=== PATIENT | female | born 1970 | race Hispanic/Latino ===

== ENCOUNTER 2019-02-05 10:53 | Emergency (ER) | payer SELFPAY | END 2019-02-05 11:50 | disposition home or self-care (01) | LOC: EDH 10:53 | DX: N93.9 Abnormal uterine and vaginal bleeding, unspecified (principal); E78.5 Hyperlipidemia, unspecified; E11.9 Type 2 diabetes mellitus without complications; Z98.890 Other specified postprocedural states; Z88.1 Allergy status to other antibiotic agents | CPT/HCPCS: 99281 ==

== ENCOUNTER 2022-11-12 17:06 | Inpatient (IN) | payer OTHER ==
[~2022-11-12] VITALS: Ht 160 cm; Wt 65.8 kg
[2022-11-12 17:40] LABS: BASOPHILS % (AUTO) 0.3 % (0.0-5.0); HEMATOCRIT 30.1 % (36-48); LYMPHOCYTES % (AUTO) 4.9 % (21.0-51.0); MEAN CORPUSCULAR HEMOGLOBIN 32.1 pg (27.0-33.0); MEAN CORPUSCULAR HGB CONC 34.6 g/dL (32.0-36.0); MEAN CORPUSCULAR VOLUME 92.9 fL (79-99); MONOCYTES % (AUTO) 2.4 % (3.0-13.0); NEUTROPHILS % (AUTO) 91.7 % (40.0-77.0); PLATELET COUNT (AUTO) 99 K/uL (130-400); RED BLOOD CELL COUNT(AUTO) 3.24 MIL/uL (4.00-5.50); RED CELL DISTRIBUTION WIDTH 12.2 % (11.0-15.5); WHITE BLOOD COUNT (AUTO) 9.2 K/uL (4.8-10.8)
[2022-11-12 17:52] LABS: CREATININE 0.9 mg/dL (0.5-1.5); POTASSIUM 3.8 mmol/L (3.5-5.1)
[2022-11-12 17:57] LABS: TOTAL PROTEIN, SERUM 6.9 g/dL (6.0-8.3)
[2022-11-12] MEDS ORDERED: 0.9%NACL 1000ML 1,000 ML IV ONE ×2 (18:00)
[2022-11-12] MEDS ORDERED: ACETAMINOPHEN 500 MG TABLET PO ONE (18:00)
[2022-11-12 18:43] LABS: APPEARANCE,URINE CLOUDY (CLEAR); BILIRUBIN,URINE 2 mg/dL (NEGATIVE); COLOR,URINE DARK-YELLOW (YELLOW); GLUCOSE, URINE (UA) 70 mg/dL (NEGATIVE); KETONES,URINE NEGATIVE (NEGATIVE); LEUKOCYTE ESTERASE ,URINE 250 Leu/uL (NEGATIVE); NITRATE,URINE NEGATIVE (NEGATIVE); OCCULT BLOOD,URINE SMALL (NEGATIVE); PH,URINE 5.5 (5.0-8.0); PROTEIN,URINE 30 mg/dL (NEGATIVE)
[2022-11-12 18:51] LABS: BACTERIA,URINE RARE /HPF (None Seen); MUCUS,URINE RARE LPF (None Seen); SQUAMOUS EPITHELIAL CELL,UR RARE /HPF (0-2); YEAST,URINE BUDDING RARE /HPF (None Seen)
[2022-11-12] MEDS ORDERED: FAMOTIDINE 20MG VIAL IV ONE (19:00)
[2022-11-12] MEDS ORDERED: ONDANSETRON 4MG INJ IVP ONE (19:00)
[2022-11-12] MEDS ORDERED: ONDANSETRON 4MG INJ IV PRN (19:30)
[2022-11-12] MEDS ORDERED: ACETAMINOPHEN WITH CODEINE 1 TAB TAB PO PRN (19:30)
[2022-11-12] MEDS ORDERED: CEFTRIAXONE 1G VIAL IV SCH (19:30)
[2022-11-12] MEDS ORDERED: MAG/ALUM/SIMETH 30 ML UDCUP PO PRN (19:30)
[2022-11-12] MEDS ORDERED: CEFTRIAXONE 1G VIAL IVP ONE (19:30)
[2022-11-12] MEDS ORDERED: ZOLPIDEM TARTRATE 5 MG TAB PO PRN (19:30)
[2022-11-12] MEDS ORDERED: LACTULOSE 20 GM/30 ML UDCUP PO PRN (19:30)
[2022-11-12] MEDS ORDERED: MORPHINE 2 MG SYG IV PRN (20:00)
[2022-11-12] MEDS: FAMOTIDINE 20MG VIAL IV SCH (20:06)
[2022-11-12] MEDS: 0.9%NACL 1000ML 1,000 ML IV SCH (20:06)
[2022-11-12] MEDS: INSULIN HUMULIN R 100 UNIT/ML 3ML SQ SCH (21:00)
[2022-11-12 23:43] VITALS: BP 90/40
[2022-11-13 00:21] VITALS: BP 100/50
[2022-11-13] MEDS ORDERED: FLUO20CA30 PO (00:24)
[2022-11-13] MEDS ORDERED: ATOR10 PO (00:24)
[2022-11-13] MEDS ORDERED: METF-446 PO (00:24)
[2022-11-13 02:09] VITALS: BP 100/60
[2022-11-13] MEDS: ACETAMINOPHEN 325 MG TAB PO PRN ×4 (02:11→20:42)
[2022-11-13 03:56] VITALS: BP 90/46
[2022-11-13] MEDS: 0.9%NACL 1000ML 1,000 ML IV SCH ×2 (05:17→18:39)
[2022-11-13] MEDS: INSULIN HUMULIN R 100 UNIT/ML 3ML SQ SCH ×4 (05:21→20:57)
[2022-11-13 06:00] LABS: HEMATOCRIT 25.7 % (36-48); MEAN CORPUSCULAR HEMOGLOBIN 31.7 pg (27.0-33.0); MEAN CORPUSCULAR HGB CONC 33.1 g/dL (32.0-36.0); MEAN CORPUSCULAR VOLUME 95.9 fL (79-99); RED BLOOD CELL COUNT(AUTO) 2.68 MIL/uL (4.00-5.50); RED CELL DISTRIBUTION WIDTH 12.7 % (11.0-15.5); WHITE BLOOD COUNT (AUTO) 8.4 K/uL (4.8-10.8)
[2022-11-13 06:04] LABS: CREATININE 0.7 mg/dL (0.5-1.5); MAGNESIUM 1.6 mg/dL (1.80-2.40); POTASSIUM 3.6 mmol/L (3.5-5.1)
[2022-11-13 08:00] VITALS: BP 107/53
[2022-11-13] MEDS: FAMOTIDINE 20MG VIAL IV SCH ×2 (08:44→20:22)
[2022-11-13] MEDS ORDERED: ENOXAPARIN SODIUM 40 MG/0.4 ML SYRINGE SQ SCH (09:00)
[2022-11-13 11:53] VITALS: BP 84/49
[2022-11-13] MEDS ORDERED: 0.9%NACL 50ML IV SCH (13:30)
[2022-11-13] MEDS ORDERED: LIDOCAINE HCL-MPF 1% 2ML VIAL IV PRN (13:30)
[2022-11-13] MEDS ORDERED: MAGNESIUM 2GM PREMIX 50ML 50 ML IV PRN (13:30)
[2022-11-13] MEDS ORDERED: POTASSIUM CHLORIDE 10% ELIXIR 20 MEQ/15 ML UDCUP PO PRN (13:30)
[2022-11-13] MEDS ORDERED: POTASSIUM CHLORIDE 20MEQ/100ML 100 ML IV PRN (13:30)
[2022-11-13] MEDS: ZOSYN 3.375GM +NS 50ML IVPB SCH ×2 (14:35→20:22)
[2022-11-13] MEDS: KCL 20 MEQ ERTAB PO PRN ×2 (15:34→19:18)
[2022-11-13 20:00] VITALS: BP 94/47
[2022-11-14] VITALS (7 sets, daily range): BP systolic 80–117; BP diastolic 45–60
[2022-11-14] MEDS: 0.9%NACL 1000ML 1,000 ML IV SCH ×3 (01:04→20:00)
[2022-11-14] MEDS: ZOSYN 3.375GM +NS 50ML IVPB SCH ×3 (04:38→20:00)
[2022-11-14 04:44] LABS: BASOPHILS % (AUTO) 0.3 % (0.0-5.0); LYMPHOCYTES % (AUTO) 5.4 % (21.0-51.0); MEAN CORPUSCULAR HEMOGLOBIN 32.4 pg (27.0-33.0); MEAN CORPUSCULAR VOLUME 92.7 fL (79-99); NEUTROPHILS % (AUTO) 90.5 % (40.0-77.0); PLATELET COUNT (AUTO) 100 K/uL (130-400); RED BLOOD CELL COUNT(AUTO) 2.59 MIL/uL (4.00-5.50); WHITE BLOOD COUNT (AUTO) 10.9 K/uL (4.8-10.8)
[2022-11-14 05:05] LABS: ALBUMIN 2.1 g/dL (3.5-5.0); CREATININE 0.7 mg/dL (0.5-1.5); MAGNESIUM 1.6 mg/dL (1.80-2.40); POTASSIUM 4.2 mmol/L (3.5-5.1); TOTAL PROTEIN, SERUM 5.4 g/dL (6.0-8.3)
[2022-11-14] MEDS: INSULIN HUMULIN R 100 UNIT/ML 3ML SQ SCH ×4 (05:25→20:00)
[2022-11-14] MEDS: ACETAMINOPHEN 325 MG TAB PO PRN ×3 (07:38→18:06)
[2022-11-14 09:27] LABS: HEPATITIS A IGM ANTIBODY Non-Reactive (Nonreactive); HEPATITIS B CORE IGM ANTIBODY Non-Reactive (Negative); HEPATITIS B SURFACE ANTIGEN Non-Reactive (Nonreactive); HEPATITIS C ANTIBODY Non-Reactive (Nonreactive)
[2022-11-14] MEDS: FAMOTIDINE 20MG VIAL IV SCH ×2 (09:52→20:00)
[2022-11-14 10:03] LABS: HEMATOCRIT 25.5 % (36-48); MEAN CORPUSCULAR HGB CONC 33.3 g/dL (32.0-36.0); MEAN CORPUSCULAR VOLUME 95.9 fL (79-99); RED BLOOD CELL COUNT(AUTO) 2.66 MIL/uL (4.00-5.50); RED CELL DISTRIBUTION WIDTH 13.2 % (11.0-15.5); WHITE BLOOD COUNT (AUTO) 11.5 K/uL (4.8-10.8)
[2022-11-14 10:20] LABS: % IRON SATURATION 8.7 % (22-44)
[2022-11-14] MEDS ORDERED: FLUCONAZOLE 200 MG/NS 100 ML 100 ML IV SCH (13:00)
[2022-11-14] MEDS: MAGNESIUM 2GM PREMIX 50ML 50 ML IV SCH (13:46)
[2022-11-14 14:27] LABS: APPEARANCE,URINE CLEAR (CLEAR); BILIRUBIN,URINE 0.5 mg/dL (NEGATIVE); COLOR,URINE YELLOW (YELLOW); GLUCOSE, URINE (UA) 30 mg/dL (NEGATIVE); KETONES,URINE 5 mg/dL (NEGATIVE); LEUKOCYTE ESTERASE ,URINE 25 Leu/uL (NEGATIVE); NITRATE,URINE NEGATIVE (NEGATIVE); OCCULT BLOOD,URINE NEGATIVE (NEGATIVE); PROTEIN,URINE NEGATIVE (NEGATIVE)
[2022-11-14 14:30] LABS: SQUAMOUS EPITHELIAL CELL,UR RARE /HPF (0-2); YEAST,URINE BUDDING RARE /HPF (None Seen)
[2022-11-15] VITALS (7 sets, daily range): BP systolic 93–112; BP diastolic 47–61
[2022-11-15] MEDS: ACETAMINOPHEN 325 MG TAB PO PRN ×3 (02:45→20:31)
[2022-11-15] MEDS: 0.9%NACL 1000ML 1,000 ML IV SCH ×2 (04:19→18:08)
[2022-11-15] MEDS: ZOSYN 3.375GM +NS 50ML IVPB SCH ×4 (04:19→20:30)
[2022-11-15 04:44] LABS: HEMATOCRIT 23.2 % (36-48); MEAN CORPUSCULAR HEMOGLOBIN 31.4 pg (27.0-33.0); MEAN CORPUSCULAR HGB CONC 32.8 g/dL (32.0-36.0); MEAN CORPUSCULAR VOLUME 95.9 fL (79-99); RED BLOOD CELL COUNT(AUTO) 2.42 MIL/uL (4.00-5.50); RED CELL DISTRIBUTION WIDTH 13.6 % (11.0-15.5); WHITE BLOOD COUNT (AUTO) 9.7 K/uL (4.8-10.8)
[2022-11-15 05:03] LABS: ALBUMIN 1.8 g/dL (3.5-5.0); CREATININE 0.7 mg/dL (0.5-1.5); MAGNESIUM 1.8 mg/dL (1.80-2.40); POTASSIUM 3.6 mmol/L (3.5-5.1); TOTAL PROTEIN, SERUM 4.8 g/dL (6.0-8.3)
[2022-11-15] MEDS: INSULIN HUMULIN R 100 UNIT/ML 3ML SQ SCH ×4 (05:58→19:42)
[2022-11-15] MEDS ORDERED: POTASSIUM CHLORIDE 20 MEQ/100 ML BAG IV SCH (07:00)
[2022-11-15] MEDS ORDERED: MAGNESIUM 2GM PREMIX 50ML 50 ML IV SCH (07:00)
[2022-11-15] MEDS: FAMOTIDINE 20MG VIAL IV SCH ×2 (08:16→20:30)
[2022-11-15] MEDS: MAGNESIUM 2GM PREMIX 50ML 50 ML IV SCH (08:17)
[2022-11-15] MEDS ORDERED: IRON SUCROSE COMPLEX 300 MG in 0.9% NACL 250ML 250 ML IV SCH (09:00)
[2022-11-15] MEDS ORDERED: COMPOUND IV MISC 1 EACH IVSOLN MISC PRN (10:00)
[2022-11-15] MEDS ORDERED: PEG 3350/NA SULF,BICARB,CL/KCL 4000 ML SOLN PO STA (18:02)
[2022-11-16] VITALS (21 sets, daily range): BP systolic 93–113; BP diastolic 40–69
[2022-11-16] MEDS: ZOSYN 3.375GM +NS 50ML IVPB SCH ×3 (04:12→20:29)
[2022-11-16] MEDS: 0.9%NACL 1000ML 1,000 ML IV SCH ×3 (04:12→20:30)
[2022-11-16 05:22] LABS: INR 1.09 (0.85-1.15); PROTHROMBIN TIME 11.8 SEC (9.6-11.6)
[2022-11-16 05:24] LABS: PARTIAL THROMBOPLASTIN TIME 32.3 SEC (26.3-35.5)
[2022-11-16] MEDS: INSULIN HUMULIN R 100 UNIT/ML 3ML SQ SCH ×4 (06:25→20:30)
[2022-11-16] MEDS ORDERED: PROPOFOL 10 MG/ML 20ML VIAL IV ONE (07:36)
[2022-11-16] MEDS ORDERED: PHENYLEPHRINE HCL 10 MG/ML 1ML VIAL IV ONE (07:50)
[2022-11-16 07:51] LABS: HEMATOCRIT 24.7 % (36-48); MEAN CORPUSCULAR HEMOGLOBIN 31.5 pg (27.0-33.0); MEAN CORPUSCULAR HGB CONC 33.2 g/dL (32.0-36.0); NUCLEATED RED BLOOD CELLS 0.2 % (0.0-0.19); RED BLOOD CELL COUNT(AUTO) 2.6 MIL/uL (4.00-5.50); WHITE BLOOD COUNT (AUTO) 9.8 K/uL (4.8-10.8)
[2022-11-16 08:07] LABS: CREATININE 0.7 mg/dL (0.5-1.5); POTASSIUM 3.9 mmol/L (3.5-5.1)
[2022-11-16] MEDS: FAMOTIDINE 20MG VIAL IV SCH ×2 (09:00→20:28)
[2022-11-16] MEDS: ACETAMINOPHEN 325 MG TAB PO PRN (13:52)
[2022-11-16] MEDS ORDERED: IRON SUCROSE COMPLEX 300 MG in 0.9% NACL 250ML 250 ML IV ONE (21:00)
[2022-11-17] VITALS: BP 131/75
[2022-11-17] MEDS: FERROUS SULFATE 325 MG TABLET.DR PO SCH (01:23)
[2022-11-17 04:00] VITALS: BP 102/62
[2022-11-17] MEDS: ZOSYN 3.375GM +NS 50ML IVPB SCH ×3 (04:39→21:58)
[2022-11-17 04:56] LABS: BASOPHILS % (AUTO) 0.2 % (0.0-5.0); EOSINOPHILS % (AUTO) 0.1 % (0.0-8.0); HEMATOCRIT 21.9 % (36-48); MEAN CORPUSCULAR HEMOGLOBIN 31.6 pg (27.0-33.0); MEAN CORPUSCULAR HGB CONC 32.9 g/dL (32.0-36.0); MEAN CORPUSCULAR VOLUME 96.1 fL (79-99); MONOCYTES % (AUTO) 5.4 % (3.0-13.0); PLATELET COUNT (AUTO) 156 K/uL (130-400); RED BLOOD CELL COUNT(AUTO) 2.28 MIL/uL (4.00-5.50); RED CELL DISTRIBUTION WIDTH 14.6 % (11.0-15.5); WHITE BLOOD COUNT (AUTO) 9.6 K/uL (4.8-10.8)
[2022-11-17 05:11] LABS: CREATININE 0.6 mg/dL (0.5-1.5); MAGNESIUM 1.9 mg/dL (1.80-2.40); POTASSIUM 3.4 mmol/L (3.5-5.1)
[2022-11-17] MEDS: KCL 20 MEQ ERTAB PO PRN ×2 (05:55→11:32)
[2022-11-17] MEDS: INSULIN HUMULIN R 100 UNIT/ML 3ML SQ SCH ×4 (05:56→21:00)
[2022-11-17 08:08] VITALS: BP 118/70
[2022-11-17] MEDS: FAMOTIDINE 20MG VIAL IV SCH ×2 (08:41→20:28)
[2022-11-17 12:07] VITALS: BP 94/46
[2022-11-17 16:42] VITALS: BP 134/67
[2022-11-17 20:00] VITALS: BP 112/56
[2022-11-17] MEDS: 0.9%NACL 1000ML 1,000 ML IV SCH (20:29)
[2022-11-18] VITALS (7 sets, daily range): BP systolic 114–127; BP diastolic 63–74
[2022-11-18] MEDS: INSULIN HUMULIN R 100 UNIT/ML 3ML SQ SCH ×3 (05:30→20:31)
[2022-11-18] MEDS: 0.9%NACL 1000ML 1,000 ML IV SCH ×2 (05:30→21:06)
[2022-11-18] MEDS: ZOSYN 3.375GM +NS 50ML IVPB SCH ×3 (05:47→21:07)
[2022-11-18] MEDS: FERROUS SULFATE 325 MG TABLET.DR PO SCH (09:05)
[2022-11-18] MEDS: FAMOTIDINE 20MG VIAL IV SCH ×2 (09:06→19:41)
[2022-11-18] MEDS ORDERED: DOXYCYCLINE 100MG+NS 250ML IV SCH (13:30)
[2022-11-18] MEDS: DOXYCYCLINE 100MG+NS 250ML 250 ML IV SCH (15:11)
[2022-11-18 16:11] LABS: APPEARANCE,URINE CLEAR (CLEAR); BILIRUBIN,URINE NEGATIVE (NEGATIVE); COLOR,URINE YELLOW (YELLOW); GLUCOSE, URINE (UA) NEGATIVE (NEGATIVE); KETONES,URINE NEGATIVE (NEGATIVE); LEUKOCYTE ESTERASE ,URINE NEGATIVE Leu/uL (NEGATIVE); NITRATE,URINE NEGATIVE (NEGATIVE); OCCULT BLOOD,URINE NEGATIVE (NEGATIVE); PROTEIN,URINE NEGATIVE (NEGATIVE); UROBILINOGEN,URINE 3 mg/dL (0.2-1.0)
[2022-11-18 16:14] LABS: MUCUS,URINE RARE LPF (None Seen); RBC,URINE 0-1 /HPF (0-1); SQUAMOUS EPITHELIAL CELL,UR RARE /HPF (0-2)
[2022-11-19] MEDS: 0.9%NACL 1000ML 1,000 ML IV SCH ×3 (01:30→20:15)
[2022-11-19] MEDS: DOXYCYCLINE 100MG+NS 250ML 250 ML IV SCH ×3 (01:48→23:49)
[2022-11-19] MEDS: ZOSYN 3.375GM +NS 50ML IVPB SCH ×3 (04:10→23:42)
[2022-11-19 04:37] VITALS: BP 127/62
[2022-11-19] MEDS: INSULIN HUMULIN R 100 UNIT/ML 3ML SQ SCH ×4 (05:42→20:13)
[2022-11-19 06:01] LABS: BASOPHILS % (AUTO) 0.4 % (0.0-5.0); EOSINOPHILS % (AUTO) 0.3 % (0.0-8.0); HEMATOCRIT 22.1 % (36-48); LYMPHOCYTES % (AUTO) 28.9 % (21.0-51.0); MEAN CORPUSCULAR HEMOGLOBIN 31.9 pg (27.0-33.0); MEAN CORPUSCULAR VOLUME 96.5 fL (79-99); MONOCYTES % (AUTO) 5.7 % (3.0-13.0); NEUTROPHILS % (AUTO) 60.3 % (40.0-77.0); NUCLEATED RED BLOOD CELLS 0.3 % (0.0-0.19); PLATELET COUNT (AUTO) 201 K/uL (130-400); RED BLOOD CELL COUNT(AUTO) 2.29 MIL/uL (4.00-5.50); RED CELL DISTRIBUTION WIDTH 16.4 % (11.0-15.5); WHITE BLOOD COUNT (AUTO) 7.3 K/uL (4.8-10.8)
[2022-11-19 06:31] LABS: CREATININE 0.5 mg/dL (0.5-1.5); MAGNESIUM 1.7 mg/dL (1.80-2.40); PHOSPHORUS 3.7 mg/dL (2.5-4.9); POTASSIUM 3.6 mmol/L (3.5-5.1); TOTAL PROTEIN, SERUM 5.8 g/dL (6.0-8.3)
[2022-11-19] MEDS: KCL 20 MEQ ERTAB PO PRN (06:44)
[2022-11-19 07:55] VITALS: BP 124/66
[2022-11-19] MEDS: FAMOTIDINE 20MG VIAL IV SCH ×2 (08:51→20:14)
[2022-11-19 12:00] VITALS: BP 105/61
[2022-11-19 16:00] VITALS: BP 108/65
[2022-11-19 19:46] VITALS: BP 128/67
[2022-11-19 23:23] VITALS: BP 136/77
[2022-11-20] MEDS: 0.9%NACL 1000ML 1,000 ML IV SCH (03:15)
[2022-11-20 04:33] VITALS: BP 124/76
[2022-11-20 05:02] LABS: BASOPHILS % (AUTO) 0.4 % (0.0-5.0); EOSINOPHILS % (AUTO) 0.4 % (0.0-8.0); LYMPHOCYTES % (AUTO) 32.7 % (21.0-51.0); MEAN CORPUSCULAR HEMOGLOBIN 32.7 pg (27.0-33.0); MEAN CORPUSCULAR HGB CONC 32.2 g/dL (32.0-36.0); MEAN CORPUSCULAR VOLUME 101.8 fL (79-99); MONOCYTES % (AUTO) 6.6 % (3.0-13.0); NEUTROPHILS % (AUTO) 55.1 % (40.0-77.0); PLATELET COUNT (AUTO) 236 K/uL (130-400); RED BLOOD CELL COUNT(AUTO) 2.26 MIL/uL (4.00-5.50); RED CELL DISTRIBUTION WIDTH 17.4 % (11.0-15.5); WHITE BLOOD COUNT (AUTO) 6.8 K/uL (4.8-10.8)
[2022-11-20 05:21] LABS: ALBUMIN 2.1 g/dL (3.5-5.0); CREATININE 0.6 mg/dL (0.5-1.5); POTASSIUM 3.9 mmol/L (3.5-5.1); TOTAL PROTEIN, SERUM 6.2 g/dL (6.0-8.3)
[2022-11-20] MEDS: INSULIN HUMULIN R 100 UNIT/ML 3ML SQ SCH ×2 (05:24→11:30)
[2022-11-20] MEDS: ZOSYN 3.375GM +NS 50ML IVPB SCH (05:59)
[2022-11-20 08:00] VITALS: BP 114/66
[2022-11-20] MEDS: FERROUS SULFATE 325 MG TABLET.DR PO SCH (09:54)
[2022-11-20] MEDS: FAMOTIDINE 20MG VIAL IV SCH (09:54)
[2022-11-20 11:53] VITALS: BP 120/64
[2022-11-20 15:14] LABS: TYPHUS FEVER IGG <1:64 (Neg:<1:64)
== END 2022-11-20 13:00 | disposition home or self-care (01) | DRG 871 ==
LOC: EDH 17:06 → EDHIP 17:07 → UNDOADMIN 19:22 → EDHIP 21:09 → 4AH 22:43 → EDHIP 22:43 → 4AH 23:31 → 4CH 23:31 → 4DH 23:33
PROVIDERS: ADMIT Internal Medicine; ATTEND Internal Medicine
PROC: 0DB78ZX Excision of Stomach, Pylorus, Via Natural or Artificial Opening Endoscopic, Diagnostic (ICD-10-PCS; principal; 2022-11-16)
PROC: 0DJD8ZZ Inspection of Lower Intestinal Tract, Via Natural or Artificial Opening Endoscopic (ICD-10-PCS; 2022-11-16)
DX: A41.9 Sepsis, unspecified organism (principal); K29.61 Other gastritis with bleeding; N39.0 Urinary tract infection, site not specified; E87.1 Hypo-osmolality and hyponatremia; Z20.822 Contact with and (suspected) exposure to COVID-19; N17.9 Acute kidney failure, unspecified; D62 Acute posthemorrhagic anemia; K80.20 Calculus of gallbladder without cholecystitis without obstruction; E86.0 Dehydration; K21.9 Gastro-esophageal reflux disease without esophagitis; E80.6 Other disorders of bilirubin metabolism; E11.65 Type 2 diabetes mellitus with hyperglycemia; F32.A Depression, unspecified; D69.6 Thrombocytopenia, unspecified; K74.60 Unspecified cirrhosis of liver; R62.7 Adult failure to thrive; E78.00 Pure hypercholesterolemia, unspecified; I10 Essential (primary) hypertension; Z83.3 Family history of diabetes mellitus; Z79.4 Long term (current) use of insulin; Z87.891 Personal history of nicotine dependence
CPT/HCPCS: 36415; 43239; 45378; 71045; 74176; 74183; 76700; 78226; 80048; 80053; 80074; 81001; 82270; 82533; 82948; 83540; 83550; 83605; 83735; 83935; 84100; 85025; 85027; 85610; 85730; 86757; 87040; 87088; 87635; 87804; 93306; 93356; 93970; 96361; 96374; 96375; A4606; A9537; C9803; G0378; J0696; J1450; J1650; J1756; J2370; J2405; J2543; J2704; J3475; J3480; J3490; J7030; J7050

== ENCOUNTER 2023-01-24 09:21 | Emergency (ER) | payer OTHER ==
[~2023-01-24] VITALS: Ht 160 cm; Wt 63.5 kg
[~2023-01-24 09:21] MED LIST: ATOR10 PO; FLUO20CA30 PO; METF-446 PO
[2023-01-24 11:34] LABS: BASOPHILS % (AUTO) 0.3 % (0.0-5.0); EOSINOPHILS % (AUTO) 0.9 % (0.0-8.0); HEMATOCRIT 37.5 % (36-48); LYMPHOCYTES % (AUTO) 29.2 % (21.0-51.0); MEAN CORPUSCULAR HEMOGLOBIN 32.6 pg (27.0-33.0); MEAN CORPUSCULAR HGB CONC 34.1 g/dL (32.0-36.0); MEAN CORPUSCULAR VOLUME 95.4 fL (79-99); MONOCYTES % (AUTO) 8.1 % (3.0-13.0); NEUTROPHILS % (AUTO) 61.3 % (40.0-77.0); PLATELET COUNT (AUTO) 182 K/uL (130-400); RED BLOOD CELL COUNT(AUTO) 3.93 MIL/uL (4.00-5.50); RED CELL DISTRIBUTION WIDTH 12.7 % (11.0-15.5); WHITE BLOOD COUNT (AUTO) 5.8 K/uL (4.8-10.8)
[2023-01-24 11:43] LABS: CREATININE 0.6 mg/dL (0.5-1.5)
[2023-01-24 11:48] LABS: ALBUMIN 4.1 g/dL (3.5-5.0)
[2023-01-24] MEDS ORDERED: CYCL10TA16 PO (12:20)
[2023-01-24 12:47] LABS: APPEARANCE,URINE CLEAR (CLEAR); BILIRUBIN,URINE NEGATIVE (NEGATIVE); COLOR,URINE LIGHT-YELLOW (YELLOW); GLUCOSE, URINE (UA) NEGATIVE (NEGATIVE); KETONES,URINE NEGATIVE (NEGATIVE); LEUKOCYTE ESTERASE ,URINE 75 Leu/uL (NEGATIVE); NITRATE,URINE NEGATIVE (NEGATIVE); OCCULT BLOOD,URINE NEGATIVE (NEGATIVE); PROTEIN,URINE NEGATIVE (NEGATIVE); UROBILINOGEN,URINE 0.2 mg/dL (0.2-1.0)
[2023-01-24 12:51] VITALS: BP 132/74
[2023-01-24 13:01] LABS: RBC,URINE 0-1 /HPF (0-1); SQUAMOUS EPITHELIAL CELL,UR RARE /HPF (0-2)
== END 2023-01-24 12:53 | disposition home or self-care (01) ==
LOC: EDH 09:21
DX: R42 Dizziness and giddiness (principal); E11.9 Type 2 diabetes mellitus without complications; E78.00 Pure hypercholesterolemia, unspecified; F32.A Depression, unspecified; Z20.822 Contact with and (suspected) exposure to COVID-19; Z79.84 Long term (current) use of oral hypoglycemic drugs; Z79.899 Other long term (current) drug therapy; Z88.1 Allergy status to other antibiotic agents; Z88.2 Allergy status to sulfonamides
CPT/HCPCS: 99284; 70450; 87635; 80053; 85025; 87088; 87804 ×2; 81001; 36415; C9803